=== PATIENT | female | born 1970 | race Caucasian/White ===

== ENCOUNTER 2022-09-27 13:01 | Emergency (ER) | payer MEDICAID ==
[~2022-09-27] VITALS: Ht 157.5 cm; Wt 54.9 kg
[2022-09-27 13:15] VITALS: BP 120/81
--- NOTE | 2022-09-27 15:00 | NUR ---
52/F WALKED IN VIA WALKER C/O ABD PAIN AND NAUSEA VOMITING ONSET LAST NIGHT. PT ALSO REPORTS WEAKNESS AT THIS TIME. AAO4, AMBULATORY, TACHY 114. ON CLINIC PHYSICIAN DIRECTOR. IV ESTABLISHED TO RIGHT AC WITH 20G. BLOOD DRAWN AND SENT TO LAB. JORGE L COLLECTED AND SENT TO LAB.
[2022-09-27] MEDS ORDERED: ONDANSETRON 4 MG/2 ML VIAL IVP ONE (15:30)
[2022-09-27] MEDS ORDERED: MORPHINE SULFATE 4 MG/ML SYR IVP ONE (15:30)
[2022-09-27 15:33] LABS: BASOPHILS # (AUTO) 0.2 K/uL (0.00-0.22); BASOPHILS % (AUTO) 3.3 % (0.0-2.0); HEMOGLOBIN 12.3 g/dL (12.0-16.0); LYMPHOCYTES # (AUTO) 0.6 K/uL (2.5-16.5); LYMPHOCYTES % (AUTO) 14.3 % (20.5-51.1); MEAN CORPUSCULAR HEMOGLOBIN 26 pg (27-31); MEAN CORPUSCULAR HGB CONC 33 g/dL (33-37); MEAN CORPUSCULAR VOLUME 78.7 fL (80-94); MONOCYTES # (AUTO) 0.3 K/uL (0.8-1.0); MONOCYTES % (AUTO) 7.7 % (1.7-9.3); NEUTROPHILS # (AUTO) 3.3 K/uL (1.8-7.7); NEUTROPHILS % (AUTO) 73.7 % (42.2-75.2); PLATELET COUNT (AUTO) 88 K/uL (140-450); RED CELL DISTRIBUTION WIDTH 15.9 % (11.6-13.7); WHITE BLOOD COUNT (AUTO) 4.5 K/uL (4.8-10.8)
[2022-09-27 15:35] LABS: APPEARANCE,URINE CLEAR (CLEAR); BILIRUBIN,URINE NEGATIVE (NEGATIVE); BLOOD, URINE NEGATIVE (NEGATIVE); COLOR,URINE YELLOW (YELLOW); LEUKOCYTE ESTERASE ,URINE TRACE (NEGATIVE); NITRITE, URINE NEGATIVE (NEGATIVE); UGLUCOSE NEGATIVE (NEGATIVE)
[2022-09-27] MEDS ORDERED: NACL 0.9% 1,000 ML IV ONE (15:44)
[2022-09-27 15:52] LABS: RBC,URINE 0-5 /HPF (0-5)
[2022-09-27 15:53] LABS: OTHER CASTS, URINE None Seen /LPF (None Seen)
[2022-09-27 15:53] LABS: ALBUMIN 3.2 g/dL (3.4-5.0); ANION GAP 13.7 (8-16); CARBON DIOXIDE 23.5 mmol/L (21-32); CREATININE 0.9 mg/dL (0.6-1.3); POTASSIUM 4.2 mmol/L (3.5-5.1); TOTAL BILIRUBIN 0.4 mg/dL (0.0-1.0)
--- NOTE | 2022-09-27 15:53 | NUR ---
PT WENT TO CT
[2022-09-27] MEDS ORDERED: cefTRIAXone 1,000 MG VIAL ONE (16:50)
[2022-09-27] MEDS ORDERED: TAMS0.4C96 PO (17:05)
[2022-09-27] MEDS ORDERED: CEPH-588 PO (17:05)
--- NOTE | 2022-09-27 17:05 | NUR ---
PT UNABLE TO VOID AT THIS TIME. PER DR ABBOTT, ATTEMPT STRAIGHT CATH. AFTER STRAIGHT CATH ATTEMPT WITH 12FR, NO URINE OUTPUT. DR ABBOTT MADE AWARE. JERMAIN VARGAS AND DR ABBOTT AT BEDSIDE FOR ULTRASOUND.
--- NOTE | 2022-09-27 17:30 | NUR ---
# 14 FR Urinary catheter inserted utilizing sterile technique. Immediate return of UNKNOWN AMOUNT AT THIS TIME CLEAR SUSAN COLORED urine noted. Urine sample collected and sent to lab. Pt tolerated procedure WELL. CONTINUED DRAINAGE OF URINE
--- NOTE | 2022-09-27 18:10 | NUR ---
2210 ML OF CLEAR SUSAN COLORED URINE REMOVED, PT TOLERATED WELL, ERMD MADE AWARE
[2022-09-27 19:00] VITALS: BP 122/63
--- NOTE | 2022-09-27 19:00 | NUR ---
Patient discharged with v/s stable. Written and verbal after care instructions given and explained. Patient alert, oriented and verbalized understanding of instructions. Ambulatory with steady gait. All questions addressed prior to discharge. ID band removed. Patient advised to follow up with PMD. Rx given. Patient educated on indication of medication including possible reaction and side effects. Opportunity to ask questions provided and answered. Pt dc with leg bag. pt verbalized understanding of following up with dr rocha within next 3 days. pt also verbalized understanding of emptying leg bag when full.
== END 2022-09-27 19:00 | disposition home or self-care (01) ==
LOC: MED 13:01
DX: N39.0 Urinary tract infection, site not specified (principal); Z20.822 Contact with and (suspected) exposure to COVID-19; R33.9 Retention of urine, unspecified; K94.23 Gastrostomy malfunction
CPT/HCPCS: 36415; 51701; 74176; 80053; 81001; 81025; 82150; 83690; 85025; 87426; 96365; 96375; 99285; J0696; J2270; J2405; J7030

== ENCOUNTER 2022-10-15 20:53 | Emergency (ER) | payer MEDICAID ==
[~2022-10-15] VITALS: Ht 157.5 cm; Wt 54.4 kg
[~2022-10-15 20:53] MED LIST: CEPH-588 PO; TAMS0.4C96 PO
--- NOTE | 2022-10-15 21:29 | NUR ---
TO LOBBY A/W BED AMBULATORY WITH WALKER
--- NOTE | 2022-10-15 21:48 | NUR ---
Patient taken to bed 11.
--- NOTE | 2022-10-15 21:56 | NUR ---
# 16 FR Hernandez catheter with 10 ml utilizing sterile technique. Immediate return of 1000 ml yellow, clear urine noted. Bedside drainage bag placed below level of bladder. Urine sample collected and sent to lab. Pt tolerated procedure well.
[2022-10-15 22:26] LABS: APPEARANCE,URINE CLEAR (CLEAR); COLOR,URINE YELLOW (YELLOW); PH,URINE 7.5 (5.0-9.0)
[2022-10-15 22:27] LABS: BILIRUBIN,URINE NEGATIVE (NEGATIVE); BLOOD, URINE NEGATIVE (NEGATIVE); LEUKOCYTE ESTERASE ,URINE NEGATIVE (NEGATIVE); NITRITE, URINE NEGATIVE (NEGATIVE); UGLUCOSE NEGATIVE (NEGATIVE)
--- NOTE | 2022-10-15 22:39 | NUR ---
Dr. Poole examining patient with language interpreter.
--- NOTE | 2022-10-15 22:45 | NUR ---
Empty urine bag 1700 ml , Dr. Poole notified.
[2022-10-15 22:55] VITALS: BP 117/82
--- NOTE | 2022-10-15 22:55 | NUR ---
Patient discharged with v/s stable. Written and verbal after care instructions given and explained. Patient verbalized understanding. Ambulatory with steady gait. All questions addressed prior to discharge. Advised to follow up with PMD.
== END 2022-10-15 22:55 | disposition home or self-care (01) ==
LOC: MED 20:53
DX: R33.9 Retention of urine, unspecified (principal)
CPT/HCPCS: 51702; 81003; 99283; 99284